=== PATIENT | female | born 1990 | race Hispanic/Latino ===

== ENCOUNTER 2017-01-14 08:23 | Inpatient (IN) | payer OTHER ==
[~2017-01-14] VITALS: Ht 170.2 cm; Wt 85.7 kg
[~2017-01-14 08:23] MED LIST: Ibuprofen PO; PREN-100 PO
[2017-01-14] MEDS ORDERED: Lactated Ringer's 1,000 ML IV PRN (09:46)
[2017-01-14] MEDS ORDERED: Methylergonovine 0.2 mg/mL Inj IM PRN ×2 (09:50→16:25)
[2017-01-14] MEDS ORDERED: fentaNYL-PF 50 mCg/mL 2 mL Inj IVPUSH PRN (09:50)
[2017-01-14] MEDS ORDERED: Ondansetron 2 mg/mL 2 mL Inj IVPUSH PRN ×2 (09:50→13:30)
[2017-01-14] MEDS ORDERED: Sodium Chloride LOK Flush 10 mL Syringe IVFLUSH PRN (09:50)
[2017-01-14] MEDS ORDERED: Carboprost 250 mCg/mL Inj IM PRN ×2 (09:50→16:25)
[2017-01-14] MEDS ORDERED: Hemorrhage Kit, Post Partum XX ONE ×2 (09:50→16:25)
[2017-01-14] MEDS ORDERED: Oxytocin 30 Units/500 mL LR 30 UNITS in IV Premix 1 EACH IV PRN ×2 (09:50→16:25)
[2017-01-14] MEDS ORDERED: Oxytocin 10 Unit/mL Inj IM PRN ×2 (09:50→16:25)
[2017-01-14 10:09] LABS: Mean Corpuscular Hemoglobin 27.8 pg (27.0-35.0); Mean Corpuscular Volume 87.4 fL (81-100)
[2017-01-14] MEDS ORDERED: PREN1TAB25 PO (10:15)
[2017-01-14] MEDS ORDERED: Lactated Ringer's 1,000 ML IV SCH ×2 (13:28→16:25)
[2017-01-14] MEDS ORDERED: Lactated Ringer's 500 ML IV ONE (13:28)
[2017-01-14] MEDS ORDERED: EPHEDrine Sulfate 50 mg/mL Inj IVPUSH PRN (13:30)
[2017-01-14] MEDS ORDERED: Atropine 1 mg/10 mL (Code) Syringe IVPUSH PRN (13:30)
[2017-01-14] MEDS ORDERED: fentaNYL 2 mCg/mL-Bupiv 0.125% 100 ML EPIDURAL SCH (13:30)
--- NOTE | 2017-01-14 14:23 | PCM.HPANE ---
Patient Data Surgeon Admitting Provider:Jsoh Heredia MD Attending Provider:Josh Heredia MD Primary Care Physician:Josh Heredia MD Other Provider:Karishma Fischer Anesthesia Reason for Visit Early Labor EARLY LABOR Ht/WT & BMI Body Mass Index Allergies Coded Allergies: No Known Allergies (Unverified Allergy, Unknown, 07/31/14) Past Anesthesia History Anesthesia History: Denies:: Abnormal Airway, Anesthesia Reactions, Difficult Intubation, Fam Anesthesia Reaction, Fam Malignant Hypertherm, Malignant Hyperthermia Diabetes History Hx Diabetes?: No Medications Hypertension Medication: No Home Meds Incl Beta Haresh: No Active Scripts [Ibuprofen] (Motrin)800 MG TABLET No Conflict Awxol642 Mg PO Q6H PRN For Pain # 30 TABLET Ref 1 Prov:Josh Heredia MD 08/02/14 Reported Medications Vit#96/Ferrous Fum/FA ( Tablet)1 Each Tablet1 Each PO DAILY 01/14/17 Vits #90/Iron Fum/FA ( Formula Tablet)1 Each Tablet1 Each PO DAILY #1 TABLET 07/31/14 History History of ENT Problems?: No HEENT History: Denies:: Abnormal Airway Cataracts Difficult Intubation Dysphagia Glaucoma Hearing Problem Sinus Problem TMJ Denture Type: None Teeth Condition: Within Normal Limits Hx of Heart Problems?: No Cardiovascular History: Denies:: AICD Abdominal Aortic Aneurism Atrial Fibrillation Cardiac Surgery Chest Pain Congestive Heart Failure Coronary Artery Disease Edema Heart Murmur Hypertension Irregular Heartbeat Pacemaker Peripheral Vascular Rheumatic Fever Thrombophlebitis Valvular Heart Disease Hx of Respiratory Problem?: No Respiratory History: Denies:: Asthma COPD Chest Surgery Cough Dyspnea Emphysema Hemoptysis Oxygen Administration Pneumonia Pulmonary Embolism Tuberculosis Use of C-PAP Machine Use of Inhalers / NEBS Hx Neurologic Problems?: No Hx of GI Problems?: No Hx of Problems?: No Female Hx: Positive for:: Currently Hx Musculoskeletal Problems?: No Hx Surgeries?: No Hx Alcohol Use: NoHx Substance Use: No Smoking Status: Never Smoker Stop/Bang Risk Assessment Category Category 1A: Patient has history of documented sleep apnea, and HAS NOT received any narcotic, sedative or anesthesia administration during this stay. Category 1B: Patient has history of documented sleep apnea, and HAS received any narcotic , sedative or anesthesia administration during this stay Category 2: Patient has SUSPECTED Obstructive Sleep Apnea, and HAS received any narcotic , sedative or anesthesia administration during this stay. Category 3: Patient has SUSPECTED Obstructive Sleep Apnea and HAS NOT received narcotic, sedative or anesthesia administration during this stay. Category 4: Outpatient in Procedural Areas with known sleep apnea or who screen positive for High Risk via the STOP/BANG questionnaire. Exam Exam General Appearance: Alert, Oriented X3 HEENT/AIRWAY: MP 2, Neck Movement (FROM) Lungs: Clear to Auscultation, Clear to Percussion Heart: Exam Unremarkable, Regular Rate/Rhythm Meds/Labs/Diagnostics Labs Test 01/14/17 10:00 White Blood Count 8.3th/mm3 (3.8-10.1) Red Blood Count 4.06mil/mm3 (3.90-5.20) Hemoglobin 11.3g/dL (12.0-15.6) Hematocrit 35.5% (35.0-46.0) Mean Corpuscular Volume 87.4fL (81-100) Mean Corpuscular Hemoglobin 27.8pg (27.0-35.0) Mean Corpuscular Hemoglobin Concent 31.8% (32.0-37.0) Red Cell Distribution Width 14.3% (12.3-15.4) Platelet Count 247bil/L (150-400) Plan Impression Patient chart reviewed, patient interviewed and anesthestic plan with risks, benefits, and alternatives discussed, and informed consent obtained. ASA Physical Status: ASA1 Normal Healthy Anesthetic Plan: Epidural Bene/Risks/Altern/Consents: Yes HP Complete Prior to Induction: Yes Hesham Aponte MD January 14, 2017 13:28
[2017-01-14] MEDS ORDERED: Witch Hazel-Glycerin Pads TOPICAL PRN (16:25)
[2017-01-14] MEDS ORDERED: LANOlin HPA 7 Gm Ointment TOPICAL PRN (16:25)
[2017-01-14] MEDS ORDERED: Benzocaine (Dermoplast) 20% 60 Gm Spray TOPICAL PRN (16:25)
[2017-01-14] MEDS ORDERED: Sodium Chloride LOK Flush 10 mL Syringe IVFLUSH SCH (16:30)
[2017-01-14] MEDS: HYDROcodone-APAP 5-325 mg Tablet PO PRN (23:16)
--- NOTE | 2017-01-15 00:28 | PROCED ---
[address] [address] PROCEDURE NOTE PATIENT: LEEANNE BOYD : 1990 MR#: [id number] ADMIT: 01/14/2017 JOB ID: [id number] DATE OF SERVICE: 01/14/2017 at 4:06 p.m. POSTOPERATIVE DIAGNOSIS(ES): PREOPERATIVE DIAGNOSIS(ES): SURGEON: DELIVERY SUMMARY: This 26-year-old, G2, now P2, female at 39 weeks and 1 day estimated gestational age delivered a vigorous male by normal vaginal delivery with Apgars of 9 and 9. The patient presented this morning at about 8:00 in contractions and 2 cm dilated. By 9:30 she was 3-4 cm dilated, and I went ahead and admitted her. She was zee still just every seven minutes, but they were moderate contractions. That heart tracing was reactive and reassuring. The patient continued to contract on her own, and after she was admitted I went ahead and ruptured her membranes and received clear fluid. She progressed to 5 cm by around noontime and then required an epidural. Her cervix after two hours was still the same at 5 cm. A small dose of Pitocin was started, and she reached a total dose of Pitocin of 3 mU. This pushed her to complete at about 4 p.m. She pushed over two contractions and delivered across an intact perineum. She had minimal bleeding at 200 cc. The placenta delivered approximately five minutes later spontaneously and intact with a three-vessel cord. The patient tolerated the procedure well and was in excellent condition following the procedure. There were no complications of delivery. The patient's uterus was found to be firm. Her rectum intact, and her cervix intact. Counts were correct times two. She was kept in her delivery room for recovery period.
[2017-01-15] MEDS: HYDROcodone-APAP 5-325 mg Tablet PO PRN ×2 (03:28→10:06)
--- NOTE | 2017-01-15 07:20 | PCM.DC.OB ---
Obstetrical Discharge Summary Date of Service January 15, 2017 Date of hospital admission January 14, 2017 at 09:45 Date of Discharge: January 15, 2017 Providers Admitting Physician: Josh Rdz MD Primary Care Physician: Josh Rdz MD Attending Physician: Josh Rdz MD Problems: (1) (normal spontaneous vaginal delivery) Onset Date: 08/01/2014 Status: Acute ICD Code: O80 Consultations None Invasive procedures NVD Date of Procedure: January 14, 2017 Hospital Course: Patient presented in labor. Delivered without incident and recovered well. ([Ibuprofen]) 800 MG TABLET 800 MG PO Q6H PRN PRN For Pain Prescribed by: JOSH RDZ MD Vit#96/Ferrous Fum/FA ( Tablet) 1 Each Tablet 1 EACH PO DAILY ( Reported) Last Taken: Unknown Dose on 01/14/17 0800 Vits #90/Iron Fum/FA ( Formula Tablet) 1 Each Tablet 1 EACH PO DAILY (Reported) Follow-up plan See me in eight weeks. Discharge Diet: No restrictions Discharge Activity-General: Pelvic Rest for 6 weeks, Be up and about, Activity as pain allows, Activity as energy allows, No lifting >15 pounds for 2 weeks Josh Rdz MD January 15, 2017 07:20
--- NOTE | 2017-01-15 07:22 | PCM.DIOB ---
Obstetrical Disch Instruction Date of Service: January 15, 2017 Dates of Hospitalization Date of Hospital Admission January 14, 2017 at 09:45 Providers Admitting Physician: Josh Heredia MD Primary Care Physician: Josh Heredia MD Attending Physician: Josh Heredia MD Discharge Diagnosis Problems: (1) (normal spontaneous vaginal delivery) Onset Date: 08/01/2014 Status: Acute ICD Code: O80 Diet Discharge Diet: No restrictions Activity Discharge Activity-General: Try not to overdue, Balance rest and activity, Activity as pain allows, Activity as energy allows, No lifting >15 pounds for 2 weeks Dressing and Incisional Care Hygiene: May shower, Perineal care, Sitz bath, Dermoplast spray, Witch Karen pads Follow Up Plan Follow-up Provider (F9): Josh Heredia MD Follow-up appointment: Weeks (8) Call your provider for: Fever or Chills, Shortness of breath, Heavy bleeding, Excessive constipation, Red painful breasts Josh Heredia MD January 15, 2017 07:22
[2017-01-15] MEDS ORDERED: HYDR-4003 PO (07:24)
[2017-01-15] MEDS ORDERED: DOCU-41 PO (07:24)
[2017-01-15] MEDS ORDERED: IBUP800T28 PO (07:24)
[2017-01-15 09:41] VITALS: BP 109/66; PULSE 71
== END 2017-01-15 11:04 | disposition home or self-care (01) | DRG 775 ==
LOC: FBCO 08:23 → FBC 09:45
PROVIDERS: ADMIT Family Medicine; ATTEND Family Medicine
PROC: 10E0XZZ Delivery of Products of Conception, External Approach (ICD-10-PCS; principal; 2017-01-14)
PROC: 10907ZC Drainage of Amniotic Fluid, Therapeutic from Products of Conception, Via Natural or Artificial Opening (ICD-10-PCS; 2017-01-14)
DX: O80 Encounter for full-term uncomplicated delivery (principal); Z3A.39 39 weeks gestation of pregnancy; Z37.0 Single live birth